=== PATIENT | male | born 1955 | race Caucasian/White ===

== ENCOUNTER 2018-03-07 20:45 | Emergency (ER) | payer BC ==
[~2018-03-07 20:45] MED LIST: EPINEPHRINE INJ 1 MG/10 ML DISP.SYRIN ONE; SODIUM BICARBONATE 8.4% INJ 50 MEQ/50 ML DISP.SYRIN ONE
[2018-03-07] MEDS ORDERED: ALTEPLASE INJ 100 MG VIAL ONE (21:19)
[2018-03-07 21:30] LABS: ABSOLUTE BASOPHILS # (AUTO) 0.1 10^3/uL (0.0-0.2); ABSOLUTE EOSINOPHILS # (AUTO) 0.4 10^3/uL (0.0-0.6); ABSOLUTE LYMPHOCYTES (AUTO) 6.2 10^3/uL (0.5-4.7); ABSOLUTE MONOCYTES (AUTO) 2.2 10^3/uL (0.1-1.4); ABSOLUTE NEUT (AUTO) 9.2 10^3/uL (1.7-8.2); BASOPHILS % (AUTO) 0.6 % (0-2); EOSINOPHILS % (AUTO) 2.3 % (0-6); HEMATOCRIT 48.6 % (37.9-51.0); HEMOGLOBIN 15.6 g/dL (13.5-17.0); LYMPHOCYTES % (AUTO) 34.1 % (13-45); MEAN CORPUSCULAR HEMOGLOBIN 30.2 pg (27.0-33.4); MEAN CORPUSCULAR HGB CONC 32.1 g/dL (32.0-36.0); MEAN CORPUSCULAR VOLUME 94 fl (80-97); MONOCYTES % (AUTO) 12.2 % (3-13); PLATELET COUNT 321 10^3/uL (150-450); RED BLOOD COUNT 5.17 10^6/uL (4.35-5.55); SEGMENTED NEUTROPHILS % (AUTO) 50.8 % (42-78); TOTAL CELLS COUNTED % (AUTO) 100 %; WHITE BLOOD COUNT 18.1 10^3/uL (4.0-10.5)
[2018-03-07 21:37] LABS: INTERNATIONAL RATION (INR) 0.95; PROTHROMBIN TIME 13.1 SEC (11.4-15.4)
[2018-03-07 21:37] LABS: VENOUS BLOOD BASE EXCESS -12.3 mmol/L; VENOUS BLOOD HCO3 21.5 mmol/L (20-32); VENOUS BLOOD PH 6.95 (7.30-7.42)
[2018-03-07 21:40] LABS: VENOUS BLOOD PCO2 99.7 mmHg (35-63)
[2018-03-07] MEDS ORDERED: SODIUM BICARBONATE 8.4% INJ 50 MEQ/50 ML DISP.SYRIN ONE (21:40)
[2018-03-07 21:41] LABS: ALANINE AMINOTRANSFERASE 41 U/L (21-72); ALBUMIN 4.6 g/dL (3.5-5.0); ALKALINE PHOSPHATASE 58 U/L (38-126); ASPARTATE AMINO TRANSFERASE 55 U/L (17-59); BILIRUBIN,DIRECT 0.3 mg/dL (0.0-0.4); BILIRUBIN,TOTAL 0.3 mg/dL (0.2-1.3); BLOOD UREA NITROGEN 24 mg/dL (7-20); CALCIUM 9.7 mg/dL (8.4-10.2); CARBON DIOXIDE 16 mmol/L (22-30); CHLORIDE 104 mmol/L (98-107); GLUCOSE 306 mg/dL (75-110); POTASSIUM 3.9 mmol/L (3.6-5.0); SODIUM 145.8 mmol/L (137-145); TOTAL PROTEIN 7.7 g/dL (6.3-8.2)
--- NOTE | 2018-03-07 21:44 | RADIOLOGY REPORT (SQ) ---
EXAM DESCRIPTION: CHEST SINGLE VIEW COMPLETED DATE/TIME: 03/07/2018 9:22 pm REASON FOR STUDY: POST ARREST; INTUBATION COMPARISON: None. EXAM PARAMETERS: NUMBER OF VIEWS: One view. TECHNIQUE: Single frontal radiographic view of the chest acquired. RADIATION DOSE: NA LIMITATIONS: None. FINDINGS: LUNGS AND PLEURA: Asymmetric pulmonary edema. Greater on the right. MEDIASTINUM AND HILAR STRUCTURES: No masses. Contour normal. HEART AND VASCULAR STRUCTURES: Cardiomegaly. BONES: No acute findings. HARDWARE: Endotracheal tube is not identified. An NG tube extends to the stomach. OTHER: No other significant finding. IMPRESSION: 1. Pulmonary edema greater on the right. 2. Cardiomegaly. 3. The endotracheal tube is not seen. TECHNICAL DOCUMENTATION: JOB ID: [id number] [employer]- All Rights Reserved Reading location - IP/workstation name: [email or web address]
[2018-03-07 21:46] LABS: ANION GAP 26 (5-19)
[2018-03-07] MEDS ORDERED: CALCIUM GLUCONATE 1000 MG/10 ML INJ IV ONE (21:56)
--- NOTE | 2018-03-07 23:15 | EKG REPORT ---
SEVERITY:- ABNORMAL ECG - SINUS TACHYCARDIA VS SLOW VTACH VS A FLUTTER WITH 2:1 CONDUCTION LEFT BUNDLE BRANCH BLOCK PATTERN : Confirmed by: Georgia Lyons 07-Mar-2018 23:15:05
[2018-03-07 23:23] VITALS: BP 143/21
--- NOTE | 2018-03-08 04:34 | ER Document Report ---
ED General - General Chief Complaint: Unresponsive Stated Complaint: LUNG ISSUES Time Seen by Provider: 03/07/18 21:37 TRAVEL OUTSIDE OF THE [place] IN LAST 30 DAYS: No - HPI Patient complains to provider of: Difficulty breathing Notes: Patient coming in for difficulty breathing cardiac arrhythmia. According to EMS patient was respiratory distress upon their arrival was carrying large TV when he started to cough of pink foam from the mouth. Patient also look to undergo a wide complex tachycardia and transport was cardioverted 2 also given amiodarone. Patient continued to have restrictive stress test working a where he was placed in. Upon our evaluation upon his initial arrival patient Sigifredo airway was to be biting the tube with some spontaneous movement patient was placed on the monitor showing tachycardia initially does not look wide complex on the monitor patient however was significantly hypoxic does have peak foam coming out of the Sigifredo airway. Otherwise patient is noncontributory to the HPI - Related Data Allergies/Adverse Reactions: Unable to Assess Allergy (Unverified 03/08/18 01:15) Past Medical History - Social History Smoking Status: Unknown if Ever Smoked Family History: Reviewed & Not Pertinent Review of Systems - Review of Systems -: Yes ROS unobtainable due to patient's medical condition Physical Exam - Vital signs Vitals: Pulse Resp BP Pulse Ox 138 H 28 H 150/100 H 73 L 03/07/18 20:45 03/07/18 20:45 03/07/18 20:45 03/07/18 20:45 Interpretation: Tachycardic, Hypoxic - General General appearance: Other - No responses with biting of the Sigifredo airway - HEENT Head: Normocephalic, Atraumatic Eyes: Normal Pupils: Fixed - Respiratory Respiratory status: Respiratory distress Breath sounds: Rales - Bilaterally Chest palpation: Minor frothy sputum - Cardiovascular Rhythm: Tachycardia Heart sounds: Normal auscultation Murmur: No - Abdominal Inspection: Obese Distension: No distension Bowel sounds: Normal Tenderness: Nontender Organomegaly: No organomegaly - Extremities General upper extremity: Normal inspection. No: Normal temperature - Cool mottled General lower extremity: Normal inspection. No: Normal temperature - Cool mottled - Skin Skin Temperature: Cool Skin Moisture: Diaphoretic Skin Color: Mottled Course - Re-evaluation Re-evalutation: 03/08/18 04:28 Upon patient's initial arrival had a Sigifredo airway established patient did have pulse with some signs of hypoxia on the monitor tachycardia. Because patient was hypoxic still with Sigifredo airway did make decision to remove taking away to establish an ET tube patient was given 20 mg of etomidate upon removal of the Sigifredo airway there is a copious amount of pink frothy was suctioned from the airway using the glide scope was initially difficult due to this pink froth initially did try to pass the ET tube overseeing the froth coming from however this was to no avail during this process patient become bradycardic and did lose pulses the Sigifredo airway was reestablished bilateral breath sounds were heard through the Sigifredo airway patient was ventilated through this and ACLS was started. CPR for less than 1 minute with pulse reestablished again patient remained hypoxic with copious amounts of PEEP froth coming from the Sigifredo airway therefore a second try of establishing ET tube was attempted this time suction catheter was placed in the airway I was able to established a 7.5 ET tube with bilateral breath sounds color change on the CO2 monitor. Again prior to completing the establishment of the airway before we could place the face guard on to secure the airway patient lost pulses again ACLS was restarted this time epinephrine along with sodium bicarb was given Accu-Chek read that 351. Pulses were quickly reestablished NG tube was placed I did ask for calcium that the patient did have will be a new left bundle tachycardic however there is no calcium available in the trauma bay. Patient continued to be hypoxic with difficult back therefore we did give the patient 100 mg of rocuronium. We were able to have enough time to get a chest x-ray however quickly after chest x-ray was obtained patient went into cardiac arrest again with a pulse during this time patient became very mottled from the nipple line up patient continued to be difficult to bag valve mask with signs of hypoxia on the monitor after multiple rounds of epinephrine and with EKG changes new left bundle branch block tachycardia and hypoxia signs of fulminant pulmonary edema concern for underlying PE that we had management the rest of our itches and tease therefore I did make decision to get the patient alteplase we continue with ACLS for approximately 30 minutes after initiation of alteplase during this time patient' s oxygenation status on a monitored continue to improve although continuing with ACLS patient never reestablished pulses patient continued to go through PA to finally asystole. Did update the family multiple times during this process upon the last update after performing ACLS and evaluations patient for approximately 1 hour family stated that they did not want any further traumatic measures therefore with a reversible causes found patient was pronounced at 2148 - Vital Signs Vital signs: Temp Pulse Resp BP Pulse Ox 138 H 24 H 143/21 H 79 L 03/07/18 20:45 03/07/18 21:36 03/07/18 21:36 03/07/18 21:36 - Laboratory Result Diagrams: 03/07/18 20:50 03/07/18 20:50 Laboratory results interpreted by me: 03/07/18 03/07/18 03/07/18 20:50 20:50 20:50 WBC 18.1 H RDW 16.0 H Absolute Neutrophils 9.2 H Absolute Lymphocytes 6.2 H Absolute Monocytes 2.2 H VBG pH VBG pCO2 Sodium 145.8 H Carbon Dioxide 16 L Anion Gap 26 H BUN 24 H Creatinine 1.59 H Est GFR ( Amer) 53 L Est GFR (Non-Af Amer) 44 L Glucose 306 H POC Glucose Lactic Acid 9.5 H 03/07/18 03/07/18 21:06 21:25 WBC RDW Absolute Neutrophils Absolute Lymphocytes Absolute Monocytes VBG pH 6.95 L* VBG pCO2 99.7 H* Sodium Carbon Dioxide Anion Gap BUN Creatinine Est GFR ( Amer) Est GFR (Non-Af Amer) Glucose POC Glucose 351 H Lactic Acid Procedures - Intubation Orotracheal Airway evaluation: Normal anatomy Mallampati Classification: Class 3 Medications: Etomidate Intubation method: Orotracheal Blade size: 3 Equipment used: Glidescope ETT size: 7.5 ETT secured at: Teeth ETT secured at (cm): 22 Breath Sounds after Intubation: Equal End tidal CO2 confirmed: Yes Critical Care Note - Critical Care Note Total time excluding time spent on procedures (mins): 60 Comments: Time spent at bedside and time spent obtaining families patient with respiratory arrest cardiac arrest Discharge - Discharge Clinical Impression: Cardiac arrest Respiratory failure Qualifiers: Chronicity: acute Respiratory failure complication: hypoxia and hypercapnia Qualified Code(s): J96.01 - Acute respiratory failure with hypoxia; J96.02 - Acute respiratory failure with hypercapnia; J96.02 - Acute respiratory failure with hypercapnia; J96.02 - Acute respiratory failure with hypercapnia Condition: Poor Disposition:
== END 2018-03-08 01:22 | disposition expired ==
LOC: ER 20:45
PROC: 0BH17EZ Insertion of Endotracheal Airway into Trachea, Via Natural or Artificial Opening (ICD-10-PCS; principal; 2018-03-07)
DX: I46.9 Cardiac arrest, cause unspecified (principal); J96.01 Acute respiratory failure with hypoxia; J96.02 Acute respiratory failure with hypercapnia
CPT/HCPCS: 93005; 37195; 36415; 87040; 82962; 85025; 85610; 80053; 84484; 82803; 83605; 71045; 93010; 31500; J0610; J0171; J3490; 94660